=== PATIENT | female | born 1950 | race Caucasian/White ===

== ENCOUNTER 2023-01-04 00:25 | Emergency (ER) | payer MEDICARE, SELFPAY ==
[2023-01-04 00:32] VITALS: BP 167/83; PULSE 79; RESP 18; TEMP 35.7; O2SAT 95; BMI 25.0
[2023-01-04 01:27] VITALS: BP 149/81; PULSE 66
--- NOTE | 2023-01-04 01:28 | EKG12_ITS ---
Test Reason : DYSRHYTHMIA Blood Pressure : / mmHG Vent. Rate : 064 BPM Atrial Rate : 064 BPM P-R Int : 200 ms QRS Dur : 144 ms QT Int : 452 ms P-R-T Axes : 031 -01 002 degrees QTc Int : 466 ms Normal sinus rhythm Right bundle branch block Abnormal ECG Confirmed by JERALD CRAWFORD, DAYNA ([id number]), science editor MARI JESUS ([id number]) on 01/06/2023 11:29:56 A M Referred By: FLAKITA Confirmed By:GORDON MARQUES MD
[2023-01-04] MEDS: dilTIAZem CD 180 MG Capsule PO (01:37)
[2023-01-04 02:02] LABS: Absolute Neutrophil Count 5.8 X10^3/uL (2.0-7.7); Basophil# 0.08 X10^3/uL; Eosinophil# 0.06 X10^3/uL; Eosinophils% 0.7 % (0-5); Hematocrit 42.5 % (37-47); Hemoglobin 13.8 g/dL (12.0-15.0); Lymphocyte % 21.4 % (19-41); Mean Corp Hgb Conc 32.5 g/dL (32-36); Mean Corpuscular Hgb 29.6 pg (27.0-32.0); Mean Platelet Vol. 9.4 fl (6.2-12.0); Monocyte# 0.67 X10^3/uL; NRBC Flagged by Analyzer 0 % (0-5); Neutrophil # 5.76 X10^3/uL (2.7-7.7); Neutrophil % 68.5 % (47-70); Platelet Count 278 K/mm3 (150-450); RBC Distribution Width CV 12.8 % (11.6-14.6); RBC Distribution Width SD 42.1 fl (35.1-43.9); Red Blood Count 4.67 M/mm3 (4.2-5.4); White Blood Count 8.4 K/mm3 (4.4-11.0)
--- NOTE | 2023-01-04 02:15 | EDS_ITS ---
HPI History of Present Illness Chief Complaint: Hypertension Informant: patient Onset/Context/Timing Onset: Days (2) Context: Gradual Onset Timing: Intermittent Quality: Irregular Location: Chest Worsened by: Eating (sometimes) Relieved by: Nothing Narrative Narrative: Patient presents with palpitations and elevated blood pressure for the past 2 days. Patient states she has been out of her diltiazem for the past 2 days. Patient states she normally takes 180 mg daily. Patient states she feels some irregularity in her chest. Patient states it comes and goes. Patient states sometimes it is worse after eating. Patient denies any shortness of breath or cough. Patient denies any nausea or vomiting. Patient denies any fevers or chills. [facility] Medical History Cataract Hypertension Home Medications diltiazem HCl 180 mg capsule,24 hr,extended release 180 mg PO DAILY #30 caps 01/04/23 [Rx Last Taken Unknown] escitalopram oxalate 10 mg tablet 10 mg PO DAILY 01/04/23 [History Last Taken Unknown] lisinopril 20 mg tablet 20 mg PO DAILY 01/04/23 [History Last Taken Unknown] omeprazole 20 mg capsule,delayed release 20 mg PO DAILY 01/04/23 [History Last Taken Unknown] rosuvastatin 10 mg tablet 10 mg PO DAILY 01/04/23 [History Last Taken Unknown] Allergy/AdvReac Type Severity Reaction Status Date / Time doxycycline Allergy Mild Other Verified 01/04/23 00:28 alendronate sodium Allergy Other Verified 01/04/23 00:28 Surgical History H/O kidney removal Social History Smoking Status: Never smoker ROS ROS ED Constitutional Constitutional ED: Denies chills or fever(s) Eyes Eyes: Reports blurry vision; Denies diplopia ENT ENT ED: Reports rhinorrhea; Denies sore throat Cardiovascular Cardiovascular: Reports palpitations; Denies chest pain Respiratory/Chest Respiratory/Chest: Denies cough or dyspnea Gastrointestinal Gastrointestinal: Denies nausea or vomiting Genitourinary Genitourinary ED: Denies dysuria or hematuria Musculoskeletal Musculoskeletal: Denies back pain or neck pain Integumentary Denies abscess or rash Neurologic Neurologic: Reports headache(s); Denies weakness Allergic/Immunologic Allergic/Immunologic ED: Denies mouth swelling or urticaria EXAM Physical Exam Const Vital Signs: 01/04/23 00:32 01/04/23 00:35 01/04/23 01:27 Temperature 96.3 F L Temperature Source Temporal Pulse Rate 79 66 Respiratory Rate 18 Respiratory Effort Normal Respiratory Pattern Normal Blood Pressure 167/83 H 149/81 H Blood Pressure Mean 111 103 Pulse Ox 95 Oxygen Delivery Method Room Air Positive well nourished and well developed General Appearance ED: well developed HEENT Reports moist mucous membranes Neck supple and no JVD Resp normal respiratory effort and clear to auscultation bilaterally Cardio regular rate and regular rhythm GI normal to inspection, nondistended, normoactive bowel sounds and non-tender Palpation: soft Extremity normal to inspection General Extremety ED: Negative for edema or tenderness General Extremity: Negative for edema Neuro oriented x3, CN's II-XII intact bilaterally and no sensory deficits noted Sensorium / Orientation: alert Motor Exam: strength 5/5 throughout Psych mental status grossly normal Skin no rashes or lesions noted MDM MDM MDM Narrative Medical decision making narrative: Differential diagnosis includes medication noncompliance, anxiety, electrolyte abnormality, anemia, cardiac dysrhythmia, and cardiac ischemia. CBC will be obtained to assess for anemia and leukocytosis. Basic metabolic profile will be obtained to assess for electrolyte abnormality and renal function. High- sensitivity troponin will be obtained to assess for cardiac ischemia. EKG will be obtained to assess for cardiac dysrhythmia and cardiac ischemia. Lab Data Attestation: I reviewed the patient's lab results. Lab results narrative: CBC was reviewed and was within normal limits. Basic metabolic profile was reviewed. Creatinine was slightly elevated at 1.2. High-sensitivity troponin was reviewed and was normal at 21. Labs: Laboratory Results - last 24 hr 01/04/23 01/04/23 01:44 01:44 WBC 8.4 RBC 4.67 Hgb 13.8 Hct 42.5 MCV 91.0 MCH 29.6 MCHC 32.5 RDW Std Deviation 42.1 RDW Coeff of Марина 12.8 Plt Count 278 MPV 9.4 Immature Gran % (Auto) 0.400 Neut % (Auto) 68.5 Lymph % (Auto) 21.4 Smyth % (Auto) 8.0 Eos % (Auto) 0.7 Baso % (Auto) 1.0 Absolute Neuts (auto) 5.8 Absolute Lymphs (auto) 1.80 Nucleated RBC % 0 Sodium 138 Potassium 3.7 Chloride 104 Carbon Dioxide 26.0 Anion Gap 8 BUN 17 Creatinine 1.20 H Estim Creat Clear Calc 40.25 Est GFR (MDRD) Af Amer 57 L Est GFR (MDRD) Non-Af 47 L BUN/Creatinine Ratio 14.2 Glucose 115 H Calcium 8.9 Troponin I High Sens 21 EKG Initial EKG: Attestation: I personally reviewed and interpreted this EKG as follows: Interpretation: Sinus Rhythm (71), No Acute Injury Pattern and RBBB Comments: EKG was obtained. On my independent interpretation, it showed a normal sinus rhythm with a rate of 64. SD interval was borderline at 200 ms. QRS interval was 144 ms. QTc interval was 466 ms. [place] was normal. There are no acute ST or T wave changes. Prior EKG tracings: not available for review Prior: No Prior Treatment and Re-Evaluation :: Patient was given a dose of her diltiazem 180 mg of extended release here. Discharge Plan Triage Chief Complaint: Hypertension ED Provider: Dawood Clayton Dx/Rx/DC Orders Clinical Impression: Hypertension, Palpitations Instructions: ED Hypertension, Established Prescriptions: Continued diltiazem HCl 180 mg capsule,extended release 24 hr 180 mg PO DAILY Qty: 30 0RF No Action lisinopril 20 mg tablet 20 mg PO DAILY Label Comments: TAKE 1 TABLET BY MOUTH DAILY omeprazole 20 mg capsule,delayed release(DR/EC) 20 mg PO DAILY escitalopram oxalate 10 mg tablet 10 mg PO DAILY rosuvastatin 10 mg tablet 10 mg PO DAILY Label Comments: TAKE 1 TABLET BY MOUTH DAILY Primary Care Provider: Neelam Ledesma Referrals: Neelam Ledesma DO [Primary Care Provider] - 5-7 Days Disposition Disposition: Home, Self Care
[2023-01-04 02:21] LABS: Anion Gap 8 (5-15); BUN 17 mg/dL (7-18); BUN/Creat Ratio 14.2 RATIO (10-20); Calcium,Total 8.9 mg/dL (8.5-10.1); Chloride 104 mmol/L (98-107); EST Glomerular Filtration Rate 47 mL/min (>60); Est Glom Filt Rate - Afr Amer 57 mL/min (>60); Estimated Creatinine Clearance 40.25 ml/min; Glucose 115 mg/dL (74-106); Potassium 3.7 mmol/L (3.5-5.1); Sodium Level 138 mmol/L (136-145); Troponin-I HS 21 pg/mL (3.0-54.0)
[2023-01-04 03:19] VITALS: BP 147/74; PULSE 63; RESP 18; O2SAT 96
== END 2023-01-04 03:20 | disposition home or self-care (01) ==
PROVIDERS: Emergency Provider Emergency Medicine; PCP Family Medicine; Visit Provider Emergency Medicine
DX: I10 Essential (primary) hypertension (principal); R00.2 Palpitations; Z79.899 Other long term (current) drug therapy
CPT/HCPCS: 80048; 84484; 85025; 93005; 99285; A4216

== ENCOUNTER 2023-02-24 11:30 | Outpatient (RCR) | payer MEDICARE, SELFPAY ==
--- NOTE | 2023-02-03 09:23 | HP.PTEVAL ---
Patient's Visit Information CLINT GRAMAJO is a 72 year old F referred to Physical Therapy by Miguelina Vickers DO with a diagnosis of osteoporosis. Date of Evaluation: 02/03/23 Physical Therapist: Dawood Barrios DPT, OCS, CSCS - Visit Plan Frequency: 3x /Week Duration: 4 Weeks Plan: 3x/week for 3-4 weeks. Please ensure patient taking long walk 2+ miles 3x/week. progress core, postural and WB ex 3x/week (pt to decide if wants at home or in gym) with pics list in conjunciton with 3 shorter walks per week 1 mile or so. Please ensure tolerates this program and gets I and compliant and then can recheck with therapist. - Subjective Had osteoporosis for a while about 5 yrs. just started a new doctor and stopped meds due to side effects and needs exercises for OP, Takes calcium and vitamin D. Has some LBP intermittently but had scoliosis surgery 9 vertebrae fusion since teenager. Takes omepraxole and has acid reflux. Sleep is OK, great. Not employed. Spends day going for walk 3x/week 1.5 miles. Reads and knits. Basic at home are no problem. No balance problems, no AD needed. Has no steps at home. - Objective Patient ambulates I with good balance today and is up tall with decent posture. Incision in thoracic spine from old surgery. Limited ROM in thoracic spine from this surgery. LB is stiff in lumbar area. HS are mod tight at -15 90/90 test. hip aROM WFL and without pain. No tenderness in lumbar paraspinals or hip mm. knee adn ankle aROM WFL. strength in core 3- abs, 3 back extension, hip rotations 3+, hip ext and abd 3+ and hip flexion 3+. knee ext and flexion 4/5 and ankles 4/5. reflexes 2/3 patella and achilles. UE AROM WFL and without pain, weakness in core with resisted UE testing. sensation LE WNL to gross light touch. - Balance/Special Test Scores Functional Gait Assessment Score: 30 % Disability: 0 CATSIB Score (Max score 120 seconds): 120 Lower Extremity Functional Score: 74 - Goals Goal 1:: I appropriate HEP for long walk 2+ miles 3x/week, short walk 1 mile and core, hip WB strength ex 30 min 3x/week for overall health and management Goal Time Frame: 2-4 Weeks - Rehabilitation Potential Physical Therapy Diagnosis: osteoporosis and could benefit from weight bearing ex program for oong term health. Rehabilitation Potential: Good - Anticipated Interventions Patient/Client Instruction: Educate patient on: Condition, Plan of Care For the Purpose of:: To improve nutrient delivery to tissue, To improve safety, To foster healthy habits Therapeutic Exercise to Include: Strength training, Postural training, Flexibilty training, Dynamic Lumbar Stabilization For the Purpose of:: To increase ROM, To improve nutrient delivery to tissue, To increase oxygenation perfusion, To improve muscle performance and motor function, To improve self management, To improve ability to perform tasks related to life management Thank you for the opportunity to evaluate your patient. For Medicare and Medicare HMO plans, please review the plan of care and approve it. It will need to be FAXED BACK to us at [phone] for Medicare purposes. For Medicare only, by signing this I certify the plan of care. Please let me know if there are questions or concerns regarding this plan of care. Physician Signature: Date:
--- NOTE | 2023-02-24 12:11 | HP.PTDCSUM ---
Discharge Summary D/C summary: It has been my pleasure to treat CLINT GRAMAJO referred by Miguelina Vickers DO, with the diagnosis of osteoporosis for a total of 10 visit(s). Discharge Date: 02/24/23 Please see the following information for a summary of their discharge status. Subjective Subjective: Getting better everyday. feeling good. Doing exercises at home without problem. Activities normal at home. sleep well. To doctor in 6 months. Walking every day almost unless rain at least a mile or more. Overall Improvement % Improvement: 100 Objective Objective/Function: met goal and good swith current ex 3x/week at least and walking daily. No gait deviations steps reciprocal without rail. Goals Goal 1:: I appropriate HEP for long walk 2+ miles 3x/week, short walk 1 mile and core, hip WB strength ex 30 min 3x/week for overall health and management Goal Progress: Goal Met Plan Plan: d/c to HEP, maybe appropriate to send back in winter for gym ex if desired, not desired currently. D/C Information d/c sentence: If there are questions or concerns regarding this patient's physical therapy, please feel free to call me at [phone]. Thank you for the referral of this patient. Sincerely, Dawood Barrios, DPT, OCS, CSCS Balance/Gait/Functional tests Balance/Special Test Scores Functional Gait Assessment Score: 30 % Disability: 0 CATSIB Score (Max score 120 seconds): 120 Lower Extremity Functional Score: 74
== END 2023-02-24 14:20 | disposition home or self-care (01) ==
LOC: PT 11:30
PROVIDERS: PCP Family Medicine; Referring Provider Family Medicine; Visit Provider Family Medicine
DX: M85.80 Other specified disorders of bone density and structure, unspecified site (principal)
CPT/HCPCS: 97110; 97161; 97164

== ENCOUNTER → 2023-07-07 | Outpatient (CLI) | payer MEDICARE, SELFPAY ==
[2023-07-07 10:17] LABS: Absolute Lymphocyte Count 1.23 X10^3/uL (0.83-4.51); Absolute Neutrophil Count 4.1 X10^3/uL (2.0-7.7); Basophil# 0.08 X10^3/uL; Basophil% 1.4 % (0-1); Eosinophil# 0.09 X10^3/uL; Eosinophils% 1.5 % (0-5); Hematocrit 45.4 % (37-47); Lymphocyte # 1.23 X10^3/ul (0.83-4.51); Lymphocyte % 20.9 % (19-41); Mean Corpuscular Hgb 29.7 pg (27.0-32.0); Mean Corpuscular Volume 89.9 fL (81-99); Mean Platelet Vol. 9.1 fl (6.2-12.0); Monocyte% 6.8 % (0-10); NRBC Flagged by Analyzer 0 % (0-5); Neutrophil # 4.08 X10^3/uL (2.7-7.7); Neutrophil % 69.2 % (47-70); Platelet Count 310 K/mm3 (150-450); RBC Distribution Width CV 12.7 % (11.6-14.6); RBC Distribution Width SD 41.9 fl (35.1-43.9); Red Blood Count 5.05 M/mm3 (4.2-5.4); White Blood Count 5.9 K/mm3 (4.4-11.0)
[2023-07-07 10:39] LABS: ALB/GLOB Ratio 0.9 RATIO (0.9-2.4); AST(SGOT) 16 U/L (15-37); Alanine Aminotransfer ALT/SGPT 21 U/L (13-56); Albumin, Serum 3.7 g/dL (3.2-5.0); Alkaline Phosphatase 108 U/L (45-117); Anion Gap 4 (5-15); BUN 15 mg/dL (7-18); BUN/Creat Ratio 13.9 RATIO (10-20); Calcium,Total 9.2 mg/dL (8.5-10.1); Chloride 108 mmol/L (98-107); Cholesterol 165 mg/dL (200); Creatinine, Serum 1.08 mg/dL (0.55-1.02); EST Glomerular Filtration Rate 53 mL/min (>60); Est Glom Filt Rate - Afr Amer 64 mL/min (>60); Glucose 108 mg/dL (74-106); High Density Lipoprotein 49 mg/dL; Potassium 3.9 mmol/L (3.5-5.1); Protein, Total 7.7 g/dL (6.4-8.2); Sodium Level 140 mmol/L (136-145); Triglycerides 130 mg/dL; Very Low Density Lipoprotein 26 mg/dL (5-40)
[2023-07-07 10:48] LABS: Vitamin D,25 Hydroxy 57.2 ng/mL
== END | disposition home or self-care (01) ==
LOC: PAVLAB 10:02
PROVIDERS: PCP Family Medicine; Referring Provider Nurse Practitioner Family; Visit Provider Nurse Practitioner Family
DX: I10 Essential (primary) hypertension (principal); E78.5 Hyperlipidemia, unspecified; E55.9 Vitamin D deficiency, unspecified
CPT/HCPCS: 36415; 80053; 80061; 82306; 85025

== ENCOUNTER → 2023-07-15 | Outpatient (CLI) | payer MEDICARE, SELFPAY ==
--- NOTE | 2023-07-15 08:12 | BI_ITS ---
MAMMOGRAPHY - BILATERAL SCREENING REASON FOR EXAM: Female, 73 years old. Routine annual screening examination. PERTINENT HISTORY: Non-contributory. TECHNIQUE: Digital bilateral breast mendoza (3D mammographic acquisition) in the CC and MLO projections. 2-D mediolateral oblique (MLO) and craniocaudad (CC) views of both breasts were obtained. CAD: Full Field Digital Mammography with Computer Added Detection was performed. COMPARISON: Comparison is made with prior outside examination July 25, 2022. FINDINGS: Breast Composition: There are scattered areas of fibroglandular density. There are no dominant masses or suspicious calcifications. No other significant abnormalities are identified. There has been no significant change since the prior study. BI/SCRN MAMM (CAD)W/MENDOZA BILAT IMPRESSION: Stable bilateral screening mammogram. Yearly follow-up mammogram recommended. (A) ASSESSMENT CATEGORY: BIRADS Category 1: Negative. A letter regarding these results will be sent to the patient by the facility within 30 days. Approximately 10% of breast cancers are not detected by mammography. A normal mammogram should not delay biopsy of a clinically suspicious abnormality. [id number] Electronically Signed: Valente Bird MD at 12:41 EST ,
== END | disposition home or self-care (01) ==
LOC: OPBI 08:10
PROVIDERS: PCP Family Medicine; Referring Provider Nurse Practitioner Family; Visit Provider Nurse Practitioner Family
DX: Z12.31 Encounter for screening mammogram for malignant neoplasm of breast (principal)
CPT/HCPCS: 77063; 77067

== ENCOUNTER → 2023-08-28 | Outpatient (CLI) | payer MEDICARE, SELFPAY ==
--- NOTE | 2023-08-28 10:25 | BD_ITS ---
STUDY: DUAL ENERGY X-RAY ABSORPTIOMETRY / DXA REASON FOR EXAM: Female, 73 years old. [id number] TECHNIQUE: Bone Mineral Density (BMD) measurements of lumbar spine and bilateral hips were obtained. COMPARISON: None. FINDINGS: Lumbar Spine (L1-L4): g/cm2 (0.953) / T-score (-0.8) / Z-score (1.5) Findings are suggestive of normal bone density with a low fracture risk. Left Femur Total: g/cm2 (0.772) / T-score (-1.4) / Z-score (0.2) Left Femoral Neck: g/cm2 (0.592) / T-score (-2.3) / Z-score (-0.4) Right Femur Total: g/cm2 (0.701) / T-score (-2.0) / Z-score (-0.3) Right Femoral Neck: g/cm2 (0.616) / T-score (-2.1) / Z-score (-0.2) BD/Dexa Bone Density Study IMPRESSION: The patient is considered osteopenic as outlined below according to World Leo Organization (WHO) criteria with a high fracture risk. Reference Information: The T-score is the number of standard deviations above or below the standard which is normal for young adults at their peak bone mineral density. The World Health Organization (WHO) interprets the T-scores as follows: Above -1 Normal bone density Between -1 and -2.5 Osteopenia Equal to / or below -2.5 Osteoporosis As a practical clinical guideline, osteopenia may be graded as follows: Mild -1 through -1.5 Moderate -1.6 through -2.0 Severe -2.1 through -2.4 The Z-score is the number of standard deviations above or below age-matched controls. A Z-score of less than -1.5 would be considered abnormal. References: 1. NIH Osteoporosis and Related Bone Diseases www osteo.org 2. International Society for Clinical Densitometry www iscd.org 3. National Osteoporosis Foundation www nof.org Electronically Signed: Valente Bird MD at 15:05 EST ,
--- OUTSIDE RECORDS SUMMARY | 2023-08-28 10:51 | XMS RPT_ITS | CCD ---
Author Name Unknown Address [address] [place] [address] Organization [facility] Care Team Providers Care Casino Accountant Name Role Phone Shira Dorsey PA-C Unavailable [phone] Van Nostran, Neelam Unavailable Unavailable Van Nostran, Neelam E Unavailable UnavailMina Burnett Unavailable Unavailable Belem Singleton Unavailable Unavailable Van Nostran, Neelam Unavailable Unavailable Irina Donaldson Unavailable Unavailable Van Nostran, Neelam Meghan Unavailable Unavailable Unavailable Jagdeep, Ms. Irina Attending Unavailable Van Nostran, Neelam Schreiber Primary Care Unava ilable Jagdeep, Ms. Irina Attending Unavailable Van Nostran, Neelam Schreiber Primary Care Unava ilable Jagdeep, Ms. Irina Attending Unavailable Van Nostran, Neelam Schreiber Primary Care Unava ilable Van Nostran, Neelam Schreiber Attending Unava ilable Van Nostran, Neelam Schreiber Referring Unava ilable Van Nostran, Neelam Schreiber Primary Care Unava ilable Van Nostran, Neelam Schreiber Attending Unava ilable Van Nostran, Neelam Schreiber Referring Unava ilable Van Nostran, Neelam Schreiber Primary Care Unava ilable Van Nostran, Neelam Schreiber Attending Unava ilable Van Nostran, Neelam Schreiber Referring Unava ilable Van Nostran, Neelam Schreiber Primary Care Unava ilable Van Nostran, Neelam Schreiber Attending Unava ilable Van Nostran, Neelam Schreiber Referring Unava ilable Van Nostran, Neelam Candie Primary Care Unava ilable Jagdeep, Ms. Irina Attending Unavailable Van Nostran, Neelam Candie Primary Care Unava ilable Allergies Allergy Classification Reported Allergen(s) Allergy Type Date of Onset Reaction(s) Facility (1 source) acetaminophen Drug Allergy 8 Lightheaded [facility] Work Phone: (1 source) niacin Drug Allergy 8 Hives [facility] Work Phone: (1 source) BENZOIN TINCTURE drug allergy 8 Rash, Itching [facility] Work Phone: (8 sources) Doxycycline; Translations: [Doxycycline Monohydrate CAPS] Drug Allergy [facility] Work Phone: Medications Completed/Discontinued Medications Medication Drug Class(es) Dates Sig (Normalized) Sig (Original) alendronic acid 70 mg oral tablet (20 sources) Bisphosphonate Start: 10-26-2018 take 1 tablet by mouth every week at breakfast Alendronate Sodium 70 MG Oral Tablet TAKE 1 TABLET WEEKLY, 30-60 MINUTES PRIOR TO BREAKFAST ON AN EMPTY STOMACH. DO NOT LIE DOWN AFTER TAKING MEDICATION. Quantity: 12 Refills: 3 Ordered: 17-Jul-2022 Neelam Valle DO Start : 26-Oct-2018 Active amoxicillin 500 mg oral capsule (3 sources) Penicillin-class Antibacterial Start: 09-01-2022 take 1 capsule by mouth twice daily Amoxicillin 500 MG Oral Capsule TAKE 1 CAPSULE TWICE DAILY UNTIL GONE. Quantity: 14 Refills: 0 Ordered: 01-Sep-2022 Neelam Valle DO Start : 01-Sep-2022 Active aspirin 81 mg oral tablet (20 sources) Platelet Aggregation Inhibitor, Nonsteroidal Anti-inflammatory Drug Aspirin 81 MG TABS Quantity: 0 Refills: 0 Ordered: 18-Nov-2017 DO Active Problems Active Problems Problem Classification Problem Date Documented Da te Episodic/Chronic Abdominal hernia (20 sources) Hiatal hernia; Translations: [Diaphragmatic hernia without mention of obstruction or gangrene] Episodic Past or Other Problems Problem Classification Problem Date Documented Date Episodic/Chronic Other diseases of veins and lymphatics (1 source) Venous insufficiency (chronic) (peripheral); Translations: [Venous insufficiency (chronic) (peripheral)] Onset: 02-15-2022 Episodic Residual codes; unclassified (16 sources) Immunization due; Translations: [Immunization due] Unclassified (1 source) Problem Unclassified (20 sources) Patient encounter status; Translations: [Screening for cardiovascular condition] Unclassified (3 sources) Body mass index 20-24 - normal; Translations: [Body mass index (BMI) of 24.0 to 24.9 in adult] NEGATED: Highlighted row has not occurred!Residual codes; unclassified (20 sources) Disease Episodic Results Test Name Value Interpretation Reference Range Facil ity Vital Signs Date Time Vital Sign Value Performing Clinician Facility 08-29-2022 07:52-0500 Body mass index (BMI) [Ratio] 25.09 kg/m2 Neelam Christianson John Nostran Work Phone: [facility] Work Phone: 08-29-2022 07:52-0500 Body surface area Derived from formula 1.8 m2 Neelam Christianson Van N[place] Work Phone: [facility] Work Phone: 08-29-2022 07:52-0500 Body temperature 98 [degF] Neelam Christianson [employer] Nostran Work Phone: [facility] Work Phone: 08-29-2022 07:52-0500 Body weight 70.51 kg Neelam Meghan Van Nostran Work Phone: [facility] Work Phone: 08-29-2022 07:52-0500 Diastolic blood pressure 65 mm[Hg] Neelam Christianson Van Nostran Work Phone: [facility] Work Phone: 08-29-2022 07:52-0500 Heart rate 66 /min Neelam Christianson Van Nostran Work Phone: [facility] Work Phone: 08-29-2022 07:52-0500 Respiratory rate 14 /min Neelam Christianson Van Nostran Work Phone: [facility] Work Phone: 08-29-2022 07:52-0500 SaO2% (BldA) [Mass fraction] 95 % Neelam Christianson Van Nostran Work Phone: [facility] Work Phone: 08-29-2022 07:52-0500 Systolic blood pressure 123 mm[Hg] Neelam Christianson Van Nostran Work Phone: [facility] Work Phone: 08-15-2022 13:22-0500 Diastolic blood pressure 88 mm[Hg] Neelam Christianson Van Nostran Work Phone: IV-Tbqtnkgwan-Fwtwv a [address] [place] Work Phone: 08-15-2022 13:22-0500 Systolic blood pressure 154 mm[Hg] Neelam Christianson Van Nostran Work Phone: RZ-Zjnosjiihs-Dghlo a [address] [place] Work Phone: 08-15-2022 13:08-0500 Body height 167.64 cm Neelam Christianson Van Nostran Work Phone: VD-Ceaojwlgbo-Jayfc a [address] [place] Work Phone: 08-15-2022 13:08-0500 Body mass index (BMI) [Ratio] 25.18 kg/m2 Neelam Christianson Van Nostran Work Phone: WZ-Koxfaqtlql-Nrsib a [address] [place] Work Phone: 08-15-2022 13:08-0500 Body surface area Derived from formula 1.8 m2 Neelam Christianson Van Nostran Work Phone: EF-Deanvtmjkg-Cqqnn a [address] [place] Work Phone: 08-15-2022 13:08-0500 Body weight 70.76 kg Neelam Christianson Van Nostran Work Phone: TK-Hiyhnwgege-Xtlyo a [address] [place] Work Phone: 08-15-2022 13:08-0500 Diastolic blood pressure 79 mm[Hg] Neelam Christianson Van Nostran Work Phone: SB-Zneekwoqzq-Myxee a [address] [place] Work Phone: 08-15-2022 13:08-0500 Heart rate 63 /min Neelam Christianson Van Nostran Work Phone: PU-Qvldnamvks-Arvsu a [address] [place] Work Phone: 08-15-2022 13:08-0500 SaO2% (BldA) [Mass fraction] 96 % Neelam Christianson Van Nostran Work Phone: PV-Viagybgtco-Qlwlx a [address] [place] Work Phone: 08-15-2022 13:08-0500 Systolic blood pressure 162 mm[Hg] Neelam Christianson Van Nostran Work Phone: FA-Ftnbajwyrh-Fnmwb a [address] [place] Work Phone: 07-17-2022 13:32-0500 Body mass index (BMI) [Ratio] 25.58 kg/m2 Neelam Christianson Van Nostran Work Phone: [facility] Work Phone: 07-17-2022 13:32-0500 Body surface area Derived from formula 1.81 m2 Neelam Christianson Van Nostran Work Phone: [facility] Work Phone: 07-17-2022 13:32-0500 Body temperature 98.4 [degF] Neelam Christianson Van Nostran Work Phone: [facility] Work Phone: 07-17-2022 13:32-0500 Body weight 71.9 kg Neelam Chirstianson Van Nostran Work Phone: [facility] Work Phone: 07-17-2022 13:32-0500 Diastolic blood pressure 70 mm[Hg] Neelam Christianson Van Nostran Work Phone: [facility] Work Phone: 07-17-2022 13:32-0500 Heart rate 65 /min Neelam Christianson Van Nostran Work Phone: [facility] Work Phone: 07-17-2022 13:32-0500 Respiratory rate 14 /min Neelam Christianson Van Nostran Work Phone: [facility] Work Phone: 07-17-2022 13:32-0500 SaO2% (BldA) [Mass fraction] 97 % Neelam Christianson Van Nostran Work Phone: [facility] Work Phone: 07-17-2022 13:32-0500 Systolic blood pressure 149 mm[Hg] Neelam Christianson Van Nostran Work Phone: [facility] Work Phone: 07-17-2022 13:32-0500 0 1 Neelam Christianson Van Nostran Work Phone: [facility] Work Phone: Encounters Encounter Date Encounter Type Care Provider Facility Start: 01-06-2023 AUDIT Neelam E Van N ostran Work Phone: LL-Mrexpteqhu[facility]Qbwpe Work Phone: Start: 09-03-2022 Chart Update Neelam Meghan Van N ostran Work Phone: [facility] Work Phone: Start: 09-02-2022 Chart Update Neelam Christianson Van N ostr[place] Work Phone: [facility] Work Phone: Start: 09-02-2022 ambulatory Neelam Rawlstran Facility:[id number] Start: 08-29-2022 Office outpatient vi sit 25 minutes Neelam Meghan Lopez Nostran Work Phone: [facility] Work Phone: Start: 08-29-2022 ambulatory Neelam Candie John Waldron Facility:[id number] Start: 08-15-2022 FUV, Provider: Irina Donaldson, Status: Pen, Time: 1:00 PM Neelam Christianson Van Nostran Work Phone: [facility] Work Phone: Start: 08-15-2022 Office outpatient vi sit 15 minutes Neelam Christianson Van Nostran Work Phone: IX-Qhmzkfqfzp-Uqjnoj [address] [place] Work Phone: Start: 08-15-2022 ambulatory Ms. Irina Gannon Faci lity:[id number] Start: 08-13-2022 AUDIT Neelam Meghan Van N ostran Work Phone: [facility] Work Phone: Start: 07-29-2022 Chart Update Neelam Meghan Van N ostran Work Phone: [facility] Work Phone: Start: 07-25-2022 ambulatory Neelam Schreiber Van Nostran Facility:[id number] Start: 07-17-2022 Patient encounter procedure Neelam Lopez Nostran Work Phone: [facility] Work Phone: Start: 07-17-2022 ambulatory Neelam Schreiber John Nostran Facility:[id number] Start: 04-19-2022 AUDIT Neelam Christianson Van N ostran Work Phone: [facility] Work Phone: Start: 02-21-2022 Rx Renewal Neelam Meghan Van N ostran Work Phone: MO-Svwefcuypv-Vvrtu Work Phone: Start: 02-15-2022 ambulatory Ms. Irina Gannon Faci lity:[id number] Start: 02-15-2022 Office outpatient vi sit 15 minutes Neelam Christianson Van Nostran Work Phone: WF-Crpxhfyruz-Befmpq [address] [place] Work Phone: Start: 02-15-2022 Patient encounter procedure Neelam Christianson Van Nostran Work Phone: PU-Zzayednbgx-Tmtztf [address] [place] Work Phone: Start: 01-09-2022 AUDIT Neelam Christianson Van N ostran Work Phone: [facility] Work Phone: Start: 12-31-2021 Chart Update Neelam Lopez N ostran Work Phone: QN-Jgisckukup-Xqootj [address] [place] Work Phone: Start: 12-25-2021 ECHO, Provider: MG KAMILLA CARD, Status: Pen, Time: 9:00 AM Neelam Lopez Nostran Work Phone: [facility] Work Phone: Start: 12-25-2021 ambulatory Ms. Irina Jain lity:[id number] Start: 12-23-2021 Rx Renewal Neelam Christianson Van N ostran Work Phone: [facility] Work Phone: Start: 11-28-2021 Rx Renewal Neelam Christianson Van N ostran Work Phone: [facility] Work Phone: Start: 10-26-2021 Office outpatient vi sit 15 minutes Neelam Lopez Nostran Work Phone: UA-Qhysdmycyd-Kioqoz [address] [place] Work Phone: Start: 10-26-2021 ambulatory Ms. Irina Jain lity:[id number] Start: 09-25-2021 AUDIT Neelam Crhistianson Van N ostran Work Phone: [facility] Work Phone: Start: 07-23-2021 Chart Update Neelam Lopez N ostran Work Phone: [facility] Work Phone: Start: 07-13-2021 Chart Update Neelam Christianson Van [place] o[place] Work Phone: [facility] Work Phone: Start: 07-11-2021 Patient encounter procedure Neelam Lopez Nostran Work Phone: [facility] Work Phone: Start: 06-11-2021 AUDIT Neelam Christianson Van [place] ostr[place] Work Phone: [facility] Work Phone: Start: 03-28-2021 AUDIT Neelam Christianson John N ostran Work Phone: [facility] Work Phone: Start: 01-22-2021 Chart Update Neelam Christianson John N ostran Work Phone: [facility] Work Phone: Start: 10-19-2020 Patient encounter procedure Neelam Van Nostran [facility] Work Phone: Start: 10-17-2020 Patient encounter procedure Neelam John Nostran UL-Ecdjrdvevd-Dvaybe [address] [place] Work Phone: Start: 08-03-2020 Patient encounter procedure Neelam John Nostran FN-Iilyxhwvqk-Vidvwf [address] [place] Work Phone: Start: 07-05-2020 Patient encounter procedure Neelam Van Nostran CV-Izghiuowcz-Gduqck [address] [place] Work Phone: Start: 04-18-2020 Patient encounter procedure Neelam Van Nostran [facility] Work Phone: Start: 01-19-2020 Patient encounter procedure Neelam Van Nostran [facility] Work Phone: Start: 01-13-2020 Patient encounter procedure Neelam Van Nostran [facility] Work Phone: Start: 01-11-2020 Patient encounter procedure Neelam Van Nostran [facility] Work Phone: Start: 01-05-2020 Patient encounter procedure Neelam Van Nostran [facility] Work Phone: Start: 12-30-2019 Patient encounter procedure Belem Lizarraga [address] Work Phone: Start: 10-13-2019 Patient encounter procedure Neelam Van Nostran [facility] Work Phone: Start: 07-08-2019 Patient encounter procedure Neelam Van Nostran UB-Zmprnbomco-Ejirin [address] [place] Work Phone: Start: 06-16-2019 Patient encounter procedure Neelam John Nostran [facility] Work Phone: Start: 06-01-2019 Patient encounter procedure Neelam John Nostran NB-Mborgquguz-Tobihk [address] [place] Work Phone: Start: 04-21-2019 Patient encounter procedure Neelam John Nostran [facility] Work Phone: Start: 11-10-2018 Patient encounter procedure Neelam John Nostran [facility] Work Phone: Start: 10-22-2018 Patient encounter procedure Neelam John Nostran [facility] Work Phone: Start: 10-13-2018 Patient encounter procedure Neelam John Nostran [facility] Work Phone: Start: 09-08-2018 Patient encounter procedure Neelam Van Nostran [facility] Work Phone: Start: 07-30-2018 Patient encounter procedure Neelam John Nostran [facility] Work Phone: Start: 07-20-2018 Patient encounter procedure Neelam John Nostran [facility] Work Phone: Start: 06-08-2018 Patient encounter procedure Neelam Van Nostran [facility] Work Phone: Start: 06-02-2018 End: 06-02-2018 Patient encounter procedure Shira Dorsey PA-C Work Phone: [facility] Work Phone: Start: 03-03-2018 Patient encounter procedure Neelam Lopez Nostran [facility] Work Phone: Start: 11-18-2017 Patient encounter procedure Neelam Lopez Nostran [facility] Work Phone: Patient encounter procedure Neelam Lopez Nostran Work Phone: [facility] Work Phone: Procedures Date Procedure Procedure Detail Performing Clinician Start: 12-25-2021 Echocardiography Neelam Christianson John Waldron Work Phone: Start: 10-17-2020 Basic metabolic 1998 panel - Serum or Plasma Neelam Valle Start: 10-17-2020 Lipid panel Neelam Valle Start: 07-05-2020 Hemoglobin glycosylated a1c Neelam Lopez Lynne cooleytanika Start: 07-05-2020 Ultrasound Kidney Unilateral Neelam Valle Start: 06-16-2019 Lipid panel Neelam Valle Start: 04-21-2019 CT Cardiac Scoring Neelam Valle Start: 04-21-2019 MG Breast screening Neelam Rawlstammy Start: 06-02-2018 End: 06-02-2018 Blood pressure within normal parameters - no follow-up required Shira Divas [employer] Work Phone: Start: 06-02-2018 End: 06-02-2018 BMI documented within normal parameters - no follow-up plan is required Shira Divas [employer] Work Phone: Start: 06-02-2018 End: 06-02-2018 Current medications documented [employer] PA-C Work Phone: Start: 06-02-2018 End: 06-02-2018 Pain assessment documented as positive - follow-up documented Shira [employer] PA-C Work Phone: Start: 06-02-2018 End: 06-02-2018 Tobacco non-user Shira [employer] PA-[employer] Work Phone: Donor nephrectomy Neelam John Waldron Fusion of thoracic spine Godwin Christianson John Waldron Work Phone: H/O: kidney donation History of kidney donation Neelam Christianson John Waldron Work Phone: History of Oral Surg janette Tooth Extraction [place] [facility] Neelam John Waldron Lumbar spinal fusion Neelam Christianson John Waldron Work Phone: Plan of Treatment Date Care Activity Detail Author Start: 02-20-2023 FUV, Provider: Irina Donaldson, Status: Pen, Time: 9:30 AM FUV, Provider: Irina Donaldson, Status: Pen, Time: 9:30 AM IG-Tesolnuhbu-Xxmjja [address] [place] Work Phone: Start: 01-15-2023 FUV, Provider: Neelam Valle, Status: Pen, Time: 2:00 PM FUV, Provider: Neelam Valle, Status: Pen, Time: 2:00 PM [facility] Work Phone: Start: 08-15-2022 FUV, Provider: Irina Donaldson, Status: Pen, Time: 1:00 PM FUV, Provider: Irina Donaldson, Status: Pen, Time: 1:[address]-Ldodxkrtgl-Dadjer [address] [place] Work Phone: Start: 07-17-2022 Patient encounter procedure MCRANNUAL, Provider: Neelam Valle, Status: Pen, Time: 1:30 PM UD-Azjmwqvhbr-Cfepeu [address] [place] Work Phone: Start: 01-23-2022 FUV, Provider: Irina Donaldson, Status: Pen, Time: 10:30 AM FUV, Provider: Irina Donaldson, Status: Pen, Time: 10:30 AM HH-Lhkzjogxai-Bqaqcw [address] [place] Work Phone: Start: 12-25-2021 ECHO, Provider: MEDI NA HHVI,MG CARD, Status: Pen, Time: 9:00 AM ECHO, Provider: PIZARRO HHVI,MG CARD, Status: Pen, Time: 9:00 AM WP-Hiktogsydw-Mcotxy [address] [place] Work Phone: Start: 10-26-2021 FUV, Provider: Irina Donaldson, Status: Pen, Time: 10:00 AM FUV, Provider: Irina Donaldson, Status: Pen, Time: 10:00 AM [facility] Work Phone: Start: 10-17-2021 FUV, Provider: Neelam Valle, Status: Pen, Time: 11:10 AM FUV, Provider: Neelam Valle, Status: Pen, Time: 11:10 AM [facility] Work Phone: Start: 07-11-2021 Patient encounter procedure MCRANNUAL, Provider: Neelam Valle, Status: Pen, Time: 10:50 AM [facility] Work Phone: Start: 04-17-2021 FUV, Provider: Irina Donaldson, Status: Pen, Time: 10:00 AM FUV, Provider: Irina Donaldson, Status: Pen, Time: 10:00 AM [facility] Work Phone: Start: 12-23-2020 Basic metabolic 1998 panel - Serum or Plasma Basic Metabolic Panel RD-Wgxlcuwwvo-Uahfmv [address] [place] Work Phone: Start: 12-23-2020 Lipid panel Lipid Panel MP-Cardiol ogy-Pizarro [address] [place] Work Phone: Start: 07-11-2020 Ultrasound Kid jil Unilateral [facility] Work Phone: Start: 05-28-2019 CT Cardiac Scoring [facility] Work Phone: Start: 06-02-2018 End: 06-02-2018 Appointment [facility] [place] [facility] Work Phone: Lipid panel Lipid Panel -[facility] Work Phone: Immunizations Immunization Date Immunization Notes Care Provider Darryn wilburn 05-24-2022 Fluad Quadrivalent 0 .5 ML Intramuscular Prefilled Syringe [facility]elam Valle [facility] Work Phone: Payers Date Payer Category Payer Unknown [id number] 1950 Unknown [id number] 1950 Unknown [id number] 2. [id number] 1950 Unknown [id number] 2. [id number] 1950 Unknown [id number] 2.16. [id number] 1950 Unknown [id number] 2.16. [id number] 1950 Unknown [id number] 2.16. [id number] 1950 Unknown [id number] 2.16. [id number] Private Health Insurance [id number] Unknown Unknown [id number] Social History Date Type Detail Facility Start: 06-02-2018 End: 06-02-2018 Assertion Unknown if ever smoked [facility] Work Phone: Retired Retired [facility] Work Phone: NEGATED: Highlighted row - - [facility] Work Phone: Functional Status Date Assessment Result Facility 07-11-2021 PHQ-9 Adult Depressi on Score PHQ-9 Adult Depression Score 0 [facility] Work Phone: Mental Status Date Assessment Result Facility NEGATED: Highlighted row Cognitive function [Interpretation] Cognitive status health issues are not documented Disease [facility] Work Phone: History of Present illness Narrative 08-15-2022 Note Date & Type Note Facility 08-15-2022 History of Present illness Narrative 08/15/22: Clint is a 72-year-old female with a h/o HFpEF, HTN, HLD, osteoporosis, depression, and grade I diastolic dysfunction. Today, Clint continues to complain of discomfort and swellling to the left leg due to her varicose veins. She continues to wear a compression stocking and reports being able to feel the vein from the top of her leg down to the ankle. She denies any associated pelvic fullness. Clint also complains of fluttering in her chest which tends to worsen after eating. Her last heart monitor was placed in 2018 which revealed SVT. Clint denies her fluttering affecting her quality of life or interference in ADLs. BP in the office is 162/79; patient reports at home it runs in the 120s/70s.COVID in May; FLu in June; palpitations, same left leg edema02/15/2022: Mrs Gramajo is a 71 year old female with HFpEF, hypertension, hyperlipidemia, osteoporosis, depression, and diastolic dysfunction, here for a follow up of her hypertension, varicose veins with venous insufficiency. She denies any complaints of chest pain, shortness of breath, dizziness or syncope She does have varicose veins and venous insufficiency with episodes of mild lower extremity edema.10/26/21: Mrs Gramajo is a 71 year old female with HFpEF, hypertension, hyperlipidemia, osteoporosis, depression, and diastolic dysfunction, here for a follow up of her hypertension, varicose veins with venous insufficiency. Her weight in March was 152lbs, today her weight is 150. BP 158/78, HR 75. Her BP at home averages around 130/80. She denies any complaints of chest pain, shortness of breath, palpitations, dizziness or syncope. She did have one episode of dizziness after consuming Gatorade after the holidays, but no further issues since then. She does have chronic left leg edema.04/20/21: Mrs Gramajo is here for a follow up of her hypertension. Her BP today is 145/88. She denies any complaints of chest pain or shortness of breath, but does complain of palpitations and mild left ankle edema (that is chronic). We discussed the most recent lab results. Her weight is up 4 lbs since her last visit.10/17/2020: Mrs Gramajo is here for a follow up of her hypertension and to review her renal function (S/P kidney donation). She is doing very well over all. She denies any chest pain, shortness of breath, palpitations, dizziness, headaches or syncope.04/18/2020: Mrs Gramajo is here for a follow up of her hypertension and to review her renal function. 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 She is doing well over all. She reports good BP and HR control with home readings. She denies any chest pain, shortness of breath or palpations.Mrs Gramajo is here for a follow up of her SVT, now bradycardia and hypertension. The patient states much improvement in her over all symptoms since her diltiazem was reduced and she was started on lisinopril for her hypertension, however the patient reports she has been monitoring her BP at home and her systolic BP is anywhere from 105-120 , so she is only taking a half a tab of her lisinopril due to dizziness and nausea when she takes a full dose. She is walking 3 miles a day and no longer complains of lower extremity edema. She does wear compression stockings daily. EO-Mbnfzncrpw-Licfsm [address] [place] Work Phone: History of Present illness Narrative 02-15-2022 Note Date & Type Note Facility 02-15-2022 History of Present illness Narrative 02/15/2022: Mrs Gramajo is a 71 year old female with HFpEF, hypertension, hyperlipidemia, osteoporosis, depression, and diastolic dysfunction, here for a follow up of her hypertension, varicose veins with venous insufficiency. She denies any complaints of chest pain, shortness of breath, dizziness or syncope She does have varicose veins and venous insufficiency with episodes of mild lower extremity edema.10/26/21: Mrs Gramajo is a 71 year old female with HFpEF, hypertension, hyperlipidemia, osteoporosis, depression, and diastolic dysfunction, here for a follow up of her hypertension, varicose veins with venous insufficiency. Her weight in March was 152lbs, today her weight is 150. BP 158/78, HR 75. Her BP at home averages around 130/80. She denies any complaints of chest pain, shortness of breath, palpitations, dizziness or syncope. She did have one episode of dizziness after consuming Gatorade after the holidays, but no further issues since then. She does have chronic left leg edema.04/20/21: Mrs Gramajo is here for a follow up of her hypertension. Her BP today is 145/88. She denies any complaints of chest pain or shortness of breath, but does complain of palpitations and mild left ankle edema (that is chronic). We discussed the most recent lab results. Her weight is up 4 lbs since her last visit.10/17/2020: Mrs Gramajo is here for a follow up of her hypertension and to review her renal function (S/P kidney donation). She is doing very well over all. She denies any chest pain, shortness of breath, palpitations, dizziness, headaches or syncope.04/18/2020: Mrs Gramajo is here for a follow up of her hypertension and to review her renal function. 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 She is doing well over all. She reports good BP and HR control with home readings. She denies any chest pain, shortness of breath or palpations.Mrs Gramajo is here for a follow up of her SVT, now bradycardia and hypertension. The patient states much improvement in her over all symptoms since her diltiazem was reduced and she was started on lisinopril for her hypertension, however the patient reports she has been monitoring her BP at home and her systolic BP is anywhere from 105-120 , so she is only taking a half a tab of her lisinopril due to dizziness and nausea when she takes a full dose. She is walking 3 miles a day and no longer complains of lower extremity edema. She does wear compression stockings daily. [id number] [place] Work Phone: History of Present illness Narrative 10-26-2021 Note Date & Type Note Facility 10-26-2021 History of Present illness Narrative 10/26/21: Mrs Gramajo is a 71 year old female with HFpEF, hypertension, hyperlipidemia, osteoporosis, depression, and diastolic dysfunction, here for a follow up of her hypertension, varicose veins with venous insufficiency. Her weight in March was 152lbs, today her weight is 150. BP 158/78, HR 75. Her BP at home averages around 130/80. She denies any complaints of chest pain, shortness of breath, palpitations, dizziness or syncope. She did have one episode of dizziness after consuming Gatorade after the holidays, but no further issues since then. She does have chronic left leg edema.04/20/21: Mrs Gramajo is here for a follow up of her hypertension. Her BP today is 145/88. She denies any complaints of chest pain or shortness of breath, but does complain of palpitations and mild left ankle edema (that is chronic). We discussed the most recent lab results. Her weight is up 4 lbs since her last visit.10/17/2020: Mrs Gramajo is here for a follow up of her hypertension and to review her renal function (S/P kidney donation). She is doing very well over all. She denies any chest pain, shortness of breath, palpitations, dizziness, headaches or syncope.04/18/2020: Mrs Gramajo is here for a follow up of her hypertension and to review her renal function. 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 She is doing well over all. She reports good BP and HR control with home readings. She denies any chest pain, shortness of breath or palpations.Mrs Gramajo is here for a follow up of her SVT, now bradycardia and hypertension. The patient states much improvement in her over all symptoms since her diltiazem was reduced and she was started on lisinopril for her hypertension, however the patient reports she has been monitoring her BP at home and her systolic BP is anywhere from 105-120 , so she is only taking a half a tab of her lisinopril due to dizziness and nausea when she takes a full dose. She is walking 3 miles a day and no longer complains of lower extremity edema. She does wear compression stockings daily. [id number] [address] [place] Work Phone: History of Present illness Narrative 10-26-2021 Note Date & Type Note Facility 10-26-2021 History of Present illness Narrative 10/26/21: Mrs Gramajo is a 71 year old female with HFpEF, hypertension, hyperlipidemia, osteoporosis, depression, and diastolic dysfunction, here for a follow up of her hypertension, varicose veins with venous insufficiency. Her weight in March was 152lbs, today her weight is 150. BP 158/78, HR 75. Her BP at home averages around 130/80. She denies any complaints of chest pain, shortness of breath, palpitations, dizziness or syncope. She did have one episode of dizziness after consuming Gatorade after the holidays, but no further issues since then. She does have chronic left leg edema.04/20/21: Mrs Gramajo is here for a follow up of her hypertension. Her BP today is 145/88. She denies any complaints of chest pain or shortness of breath, but does complain of palpitations and mild left ankle edema (that is chronic). We discussed the most recent lab results. Her weight is up 4 lbs since her last visit.10/17/2020: Mrs Gramajo is here for a follow up of her hypertension and to review her renal function (S/P kidney donation). She is doing very well over all. She denies any chest pain, shortness of breath, palpitations, dizziness, headaches or syncope.04/18/2020: Mrs Gramajo is here for a follow up of her hypertension and to review her renal function. 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 She is doing well over all. She reports good BP and HR control with home readings. She denies any chest pain, shortness of breath or palpations.Mrs Gramajo is here for a follow up of her SVT, now bradycardia and hypertension. The patient states much improvement in her over all symptoms since her diltiazem was reduced and she was started on lisinopril for her hypertension, however the patient reports she has been monitoring her BP at home and her systolic BP is anywhere from 105-120 , so she is only taking a half a tab of her lisinopril due to dizziness and nausea when she takes a full dose. She is walking 3 miles a day and no longer complains of lower extremity edema. She does wear compression stockings daily. [facility] Work Phone: History of Present illness Narrative 08-25-2021 Note Date & Type Note Facility 08-25-2021 History of Present illness Narrative Health maintenance:TDAP-- none foundCOVID-- 08/2021Influenza-- hingrix-- none foundPneumonia series-- completedMammo-- AP-- none found - graduatedEGD-- 11/2018 (hiatal hernia + Schatzki's ring, no pathology done)Cscope(45-75)-- 10/2011 (diverticulosis, normal mucosa, no polyps, good prep) (due 10/2021)Last Dexa (65+)-- 12/2020 (osteopenia 09/27, improved from osteoporosis 10/2018) (DUE 12/2022).Anxiety/Depression-- HQ-9: 0GAD-7: 0Hepatitis C Screen-- none foundPre-DM-- HgbA1c: 5.9 in 07/2022Lipid Panel-- ratio: 4.2 in 07/2022 (LDL 99, TRIG 154)CT cardiac score--29.4 (low) 05/2019 (focal regions of calcification in the aorta)ECHO-- 08/2018 (LVEF 55-60 %, impaired relaxation, mildly elevated RSVP)Patient presents today for evaluation of rib pain. CLINT is here for having painonset:1 yearlocation:ribcagePain Scale 1-10: 4Describe your pain: ( Aching, dull, burning, stabbing)dullconstant or intermitted intermittentmade worse by:coffeemade better by: asprintreatment:asprinpain near kidneyonly has one kidneydonated left in 85 only has right kidney _CHRONIC CONDITIONS: TO BE REVIEWED AT NEXT ROUTINE OV-Mood, taking Lexapro 10 mg daily for mood.-Osteoporosis, presently on Alendronate which was started DEXA shows osteopenia 09/27, significantly improved from prior DEXA in 10/2018 (osteoporosis).-Hyperglycemia, pre-diabetic range, lifestyle managed.12/2020 Hgb A1c 6.1-Varicose veins and some edema, previously evaluated by Dr. Wang (vascular)They felt the leg pain was likely neurogenic.No venous abnormality seen on duplex done 12/17/2020.Advised to wear compression stockings and elevate..-History of arrhythmia, HFpEF, and HTN also followed by cardiology.Taking diltiazem 120 mg daily for arrhythmiaTaking Lisinopril 20 mg daily for blood pressure.-HLD/CAD, taking Rosuvastatin 10 mg and Aspirin 81 mg daily.05/2019 CACS was 29.4 (focal regions of calcification noted in aorta + marked scoliosis)12/2021 lipid panel favorable with ratio 3.012 lipid panel with TC/HDL ratio 4.2 (LDL 99, TRIG 154)-Decreased kidney function s/p left nephrectomy for donation, GFR ranges from 51 to normal.07/12/2020 US kidney: Unremarkable ultrasound of the right kidney. The left kidney is surgically absent.12/2021 GFR 69 (normal)07/2022 GFR 56 and creatinine 1.06-GERD + hiatal hernia (EGD 11/2018), taking omeprazole 20 mg daily. [facility] Work Phone: History of Present illness Narrative Note Date & Type Note Facility History of Present illness Narrative The patient is being seen for the subsequent annual wellness visit.Past Medical, Surgical and Family History: reviewed and updated in chart.Medications and Supplements: Medications and supplements, including calcium and vitamins reviewed and updated in chart.No, the patient is not using opioids.Patient Self Assessment of Health Status: good.Tobacco use: Non-UserAlcohol use: Non-UserIllicit drug use: Non-UserCurrent diet: well balanced diet, does consume adequate fluids and does not consume caffeine.Exercise Frequency: regularly.Depression/Suicide Screening: Patient has a current diagnosis of depression .During the past 2 weeks, the patient has not felt down, depressed or hopeless.During the past 2 weeks, the patient has not felt little interest or pleasure in doing things.Hearing Impairment: none.Cognitive Impairment: No cognitive impairment observed.Bathing: performs independently.Dressing: performs independently.Walking: performs independently.Managing Finances: performs independently.Shopping: performs independently.Managing Medications: performs independently.Housework / Basic Home Maintenance: performs independently.Falls Risk Screening:. CLINT has not fallen in the last 6 months.Home safety risk factors: none.Health maintenance:TDAP-- none foundCOVID-- completed 10/2020 did not get booster yetInfluenza-- OctShingrix-- none foundPneumonia series-- completedMammo-- 06/2020PAP-- none found - graduatedEGD-- 11/2018 (hiatal hernia + Schatzki's ring, no pathology done)Cscope(45-75)-- 10/2011 (diverticulosis, normal mucosa, no polyps, good prep) (due 10/2021)Last Dexa (65+)-- 12/2020 (osteopenia 2/3, improved from osteoporosis 10/2018) (DUE 12/2022).Anxiety/Depression-- HQ-9: 0GAD-7: 0Hepatitis C Screen-- none foundPre-DM-- HgbA1c: 6.1 in ipid Panel-- ratio: 3.3 in T cardiac score--29.4 (low) 05/2019 (focal regions of calcification in the aorta + marked scoliosis (rightward deviation) of the thoracic spine).ECHO-- 08/2018 HFpEF 55-60 %. Mild TR.*Due for: TDAP,, FLU, SHINGRIX, MAMMO, HEP C SCREENPatient presents today for recheck of mood, pre-DM, GERD + MWV. ABN obtained and brochure given to patientUTD on Dexa scsanChol checked in December 2020 by cytology technologist ratio 3.3flu shot done in scalesNo issues with GERD, taking meds regularlyLexapro seems to be working wellNo refills needed at this time;rcvd flu shot in may Patient is presently on Lexapro 10 mg daily for mood.PHQ-9 and CARRIE-7 scales were reviewed with patient. See scanned document for quantification of scales.Patient with history of osteoporosis, presently on Alendronate which was started DEXA shows osteopenia 2/3 and significant improved from prior DEXA in 10/2018 which showed osteoporosis.Hyperglycemia, pre-diabetic range, lifestyle managed.12/2020 Hgb A1c 6.1Patient with known varicose veins and some edema, referred to vascular at previous OV (06/2020). Evaluated by Dr. Wang, most recent follow-up from 10/19/2020 noted that leg pain likely neurogenic. No venous abnormality seen on duplex done 12/17. Advised to wear compression stockings and elevate. F/U prn.History of arrhythmia, HFpEF, CAD, HLD, and HTN also followed by cardiology.03/2021 CARDIO F/U: Increase Lisinopril to 10 mg due to SBP > 140s.Taking diltiazem 120 mg daily for arrhythmiaTaking Lisinopril 10 mg daily for blood pressure.Taking Rosuvastatin 10 mg and Aspirin 81 mg daily for cholesterol/CAD12/2020 lipid panel favorable with ratio 3.310 CT cardiac Score was 29.4 which is low risk category. There was also focal regions of calcification noted in aorta + marked scoliosis.Decreased kidney function s/p nephrectomy for donation, per last OV note patient scheduled to see rock worker in July 2020. US of kidney ordered at last OV due to flank pain however, labs deferred to rock worker. Per patient, she had improvement in labs per cardiology so she did not go see nephrology.07/12/2020 US right kidney: Unremarkable ultrasound of the right kidney. The left kidney is surgically absent.12/2020 GFR 53 and creatinine normal. GFR ranges from 51 to >60.Known hiatal hernia (EGD 11/2018) + reflux, taking omeprazole 20 mg daily.Patient with complaint of some memory loss. She has a difficult time with word recall at times. Her mother had Parkinson's associated dementia and her father had Alzheimer's dementia. She would like to investigate further potential memory issues. [facility] Work Phone: History of Present illness Narrative Note Date & Type Note Facility History of Present illness Narrative The patient is being seen for the subsequent annual wellness visit.Past Medical, Surgical and Family History: reviewed and updated in chart.Medications and Supplements: Review of all medications by a prescribing practitioner or clinical pharmacist (such as prescriptions, OTCs, herbal therapies and supplements) documented in the medical record.No, the patient is not using opioids.Patient Self Assessment of Health Status: good.Tobacco use: Non-UserAlcohol use: Non-UserIllicit drug use: Non-UserCurrent diet: well balanced diet, does consume adequate fluids and does not consume caffeine.Exercise Frequency: regularly.Depression/Suicide Screening: Patient has a current diagnosis of depression .During the past 2 weeks, the patient has not felt down, depressed or hopeless.During the past 2 weeks, the patient has not felt little interest or pleasure in doing things.Hearing Impairment: none.Cognitive Impairment: No cognitive impairment observed.Managing Finances: performs independently.Shopping: performs independently.Managing Medications: performs independently.Housework / Basic Home Maintenance: performs independently.Falls Risk Screening:. CLINT has not fallen in the last 6 months.Home safety risk factors: none.Health maintenance:TDAP-- none foundCOVID-- 08/2021Influenza-- hingrix-- none foundPneumonia series-- completedMammo-- AP-- none found - graduatedEGD-- 11/2018 (hiatal hernia + Schatzki's ring, no pathology done)Cscope(45-75)-- 10/2011 (diverticulosis, normal mucosa, no polyps, good prep) (due 10/2021)Last Dexa (65+)-- 12/2020 (osteopenia 09/27, improved from osteoporosis 10/2018) (DUE 12/2022).Anxiety/Depression-- HQ-9: 0GAD-7: 0Hepatitis C Screen-- none foundPre-DM-- HgbA1c: 6.1 in ipid Panel-- ratio: 3.0 in T cardiac score--29.4 (low) 05/2019 (focal regions of calcification in the aorta)ECHO-- 08/2018 (LVEF 55-60 %, impaired relaxation, mildly elevated RSVP)sees cardiology in Aug appt*Due for: TDAP, SHINGRIX, MAMMO, COLONOSCOPY, HEP C SCREEN, A1cSon will be health care spokesperson, Nemesio GramajoPatient presents today for recheck of chronic conditions + MWV. r efills sentSCALES givenconcerns: had covid last month but is fine nowPatient would like to receive their wellness visit today. Patient was made aware of and signed acknowledging that if they and the provider decide to discuss medical problems today, instead of returning for a separate visit, that is not part of the wellness visit. Also made aware that in the event that discussion beyond the wellness visit components does occur, an office visit charge will be billed and they will be responsible for any copays and deductibles that apply under their insurance plan. CHRONIC CONDITIONS:-Mood, taking Lexapro 10 mg daily for mood.-Osteoporosis, presently on Alendronate which was started DEXA shows osteopenia 09/27, significantly improved from prior DEXA in 10/2018 (osteoporosis).-Hyperglycemia, pre-diabetic range, lifestyle managed.12/2020 Hgb A1c 6.1-Varicose veins and some edema, previously evaluated by Dr. Wang (vascular)They felt the leg pain was likely neurogenic.No venous abnormality seen on duplex done 12/17/2020.Advised to wear compression stockings and elevate..-History of arrhythmia, HFpEF, and HTN also followed by cardiology.Taking diltiazem 120 mg daily for arrhythmiaTaking Lisinopril 20 mg daily for blood pressure.-HLD/CAD, taking Rosuvastatin 10 mg and Aspirin 81 mg daily.05/2019 CACS was 29.4 (focal regions of calcification noted in aorta + marked scoliosis)12/2021 lipid panel favorable with ratio 3.0-Decreased kidney function s/p left nephrectomy for /18/2020 US kidney: Unremarkable ultrasound of the right kidney. The left kidney is surgically absent.12/2020 GFR 53 and creatinine normal. GFR ranges from 51 to >60.12/2021 GFR 69 (normal)-GERD + hiatal hernia (EGD 11/2018), taking omeprazole 20 mg daily. [facility] Work Phone: Instructions Instruction Description Start Date Completed Name Dates Details Instructions not documented Name Dates Details Instructions not documented Name Dates Details Instructions not documented Name Dates Details Instructions not documented Name Dates Details Instructions not documented Name Dates Details Instructions not documented Name Dates Details Instructions not documented Name Dates Details Instructions not documented Name Dates Details Instructions not documented Name Dates Details Instructions not documented Name Dates Details Instructions not documented Name Dates Details Instructions not documented Name Dates Details Instructions not documented Name Dates Details Instructions not documented Name Dates Details Instructions not documented Name Dates Details Instructions not documented Advance Directives There may be information available, but it has not been provided by the sender. No Advanced Directives Records FoundNo Advanced Directives Records FoundNo Advanced Directives Records Found Assessments There may be information available, but it has not been provided by the sender. Review of System There may be information available, but it has not been provided by the sender. Family History No Family History Records Found Grandmother Name Dates Details Family history of malignant neoplasm of colon(V16.0, Z80.0) Status:Active Mother Name Dates Details Family history of deafness o r hearing loss(V19.2, Z82.2) Status:Active Family history of Parkinsons disease, secondary(332.1, G21.9) Status:Active Father Name Dates Details Family history of Alzheimer' s disease(V17.2, Z82.0) Status:Active Brother Name Dates Details Family history of atrial fib rillation(V17.49, Z82.49) Status:Active Grandmother Name Dates Details Family history of malignant neoplasm of colon(V16.0, Z80.0) Status:Active Mother Name Dates Details Family history of Parkinsons disease, secondary(332.1, G21.9) Status:Active Family history of deafness o r hearing loss(V19.2, Z82.2) Status:Active Father Name Dates Details Family history of Alzheimer' s disease(V17.2, Z82.0) Status:Active Brother Name Dates Details Family history of atrial fib rillation(V17.49, Z82.49) Status:Active Grandmother Name Dates Details Family history of malignant neoplasm of colon(V16.0, Z80.0) Status:Active Mother Name Dates Details Family history of deafness o r hearing loss(V19.2, Z82.2) Status:Active Family history of Parkinsons disease, secondary(332.1, G21.9) Status:Active Father Name Dates Details Family history of Alzheimer' s disease(V17.2, Z82.0) Status:Active Brother Name Dates Details Family history of atrial fib rillation(V17.49, Z82.49) Status:Active Grandmother Name Dates Details Family history of malignant neoplasm of colon(V16.0, Z80.0) Status:Active Mother Name Dates Details Family history of Parkinsons disease, secondary(332.1, G21.9) Status:Active Family history of deafness o r hearing loss(V19.2, Z82.2) Status:Active Father Name Dates Details Family history of Alzheimer' s disease(V17.2, Z82.0) Status:Active Brother Name Dates Details Family history of atrial fib rillation(V17.49, Z82.49) Status:Active Grandmother Name Dates Details Family history of malignant neoplasm of colon(V16.0, Z80.0) Status:Active Mother Name Dates Details Family history of deafness o r hearing loss(V19.2, Z82.2) Status:Active Family history of Parkinsons disease, secondary(332.1, G21.9) Status:Active Father Name Dates Details Family history of Alzheimer' s disease(V17.2, Z82.0) Status:Active Brother Name Dates Details Family history of atrial fib rillation(V17.49, Z82.49) Status:Active Grandmother Name Dates Details Family history of malignant neoplasm of colon(V16.0, Z80.0) Status:Active Mother Name Dates Details Family history of deafness o r hearing loss(V19.2, Z82.2) Status:Active Family history of Parkinsons disease, secondary(332.1, G21.9) Status:Active Father Name Dates Details Family history of Alzheimer' s disease(V17.2, Z82.0) Status:Active Brother Name Dates Details Family history of atrial fib rillation(V17.49, Z82.49) Status:Active Grandmother Name Dates Details Family history of malignant neoplasm of colon(V16.0, Z80.0) Status:Active Mother Name Dates Details Family history of deafness o r hearing loss(V19.2, Z82.2) Status:Active Family history of Parkinsons disease, secondary(332.1, G21.9) Status:Active Father Name Dates Details Family history of Alzheimer' s disease(V17.2, Z82.0) Status:Active Brother Name Dates Details Family history of atrial fib rillation(V17.49, Z82.49) Status:Active Grandmother Name Dates Details Family history of malignant neoplasm of colon(V16.0, Z80.0) Status:Active Mother Name Dates Details Family history of deafness o r hearing loss(V19.2, Z82.2) Status:Active Family history of Parkinsons disease, secondary(332.1, G21.9) Status:Active Father Name Dates Details Family history of Alzheimer' s disease(V17.2, Z82.0) Status:Active Brother Name Dates Details Family history of atrial fib rillation(V17.49, Z82.49) Status:Active Grandmother Name Dates Details Family history of malignant neoplasm of colon(V16.0, Z80.0) Status:Active Mother Name Dates Details Family history of deafness o r hearing loss(V19.2, Z82.2) Status:Active Family history of Parkinsons disease, secondary(332.1, G21.9) Status:Active Father Name Dates Details Family history of Alzheimer' s disease(V17.2, Z82.0) Status:Active Brother Name Dates Details Family history of atrial fib rillation(V17.49, Z82.49) Status:Active Grandmother Name Dates Details Family history of malignant neoplasm of colon(V16.0, Z80.0) Status:Active Mother Name Dates Details Family history of Parkinsons disease, secondary(332.1, G21.9) Status:Active Family history of deafness o r hearing loss(V19.2, Z82.2) Status:Active Father Name Dates Details Family history of Alzheimer' s disease(V17.2, Z82.0) Status:Active Brother Name Dates Details Family history of atrial fib rillation(V17.49, Z82.49) Status:Active Grandmother Name Dates Details Family history of malignant neoplasm of colon(V16.0, Z80.0) Status:Active Mother Name Dates Details Family history of Parkinsons disease, secondary(332.1, G21.9) Status:Active Family history of deafness o r hearing loss(V19.2, Z82.2) Status:Active Father Name Dates Details Family history of Alzheimer' s disease(V17.2, Z82.0) Status:Active Brother Name Dates Details Family history of atrial fib rillation(V17.49, Z82.49) Status:Active Grandmother Name Dates Details Family history of malignant neoplasm of colon(V16.0, Z80.0) Status:Active Mother Name Dates Details Family history of Parkinsons disease, secondary(332.1, G21.9) Status:Active Family history of deafness o r hearing loss(V19.2, Z82.2) Status:Active Father Name Dates Details Family history of Alzheimer' s disease(V17.2, Z82.0) Status:Active Brother Name Dates Details Family history of atrial fib rillation(V17.49, Z82.49) Status:Active Grandmother Name Dates Details Family history of malignant neoplasm of colon(V16.0, Z80.0) Status:Active Mother Name Dates Details Family history of deafness o r hearing loss(V19.2, Z82.2) Status:Active Family history of Parkinsons disease, secondary(332.1, G21.9) Status:Active Father Name Dates Details Family history of Alzheimer' s disease(V17.2, Z82.0) Status:Active Brother Name Dates Details Family history of atrial fib rillation(V17.49, Z82.49) Status:Active Grandmother Name Dates Details Family history of malignant neoplasm of colon(V16.0, Z80.0) Status:Active Mother Name Dates Details Family history of deafness o r hearing loss(V19.2, Z82.2) Status:Active Family history of Parkinsons disease, secondary(332.1, G21.9) Status:Active Father Name Dates Details Family history of Alzheimer' s disease(V17.2, Z82.0) Status:Active Brother Name Dates Details Family history of atrial fib rillation(V17.49, Z82.49) Status:Active Grandmother Name Dates Details Family history of malignant neoplasm of colon(V16.0, Z80.0) Status:Active Mother Name Dates Details Family history of deafness o r hearing loss(V19.2, Z82.2) Status:Active Family history of Parkinsons disease, secondary(332.1, G21.9) Status:Active Father Name Dates Details Family history of Alzheimer' s disease(V17.2, Z82.0) Status:Active Brother Name Dates Details Family history of atrial fib rillation(V17.49, Z82.49) Status:Active Grandmother Name Dates Details Family history of malignant neoplasm of colon(V16.0, Z80.0) Status:Active Mother Name Dates Details Family history of deafness o r hearing loss(V19.2, Z82.2) Status:Active Family history of Parkinsons disease, secondary(332.1, G21.9) Status:Active Father Name Dates Details Family history of Alzheimer' s disease(V17.2, Z82.0) Status:Active Brother Name Dates Details Family history of atrial fib rillation(V17.49, Z82.49) Status:Active Unknown Family Member Name Dates Details Family history of deafness o r hearing loss: Mother(V19.2, Z82.2) Status:Active Family history of Alzheimer' s disease: Father(V17.2, Z82.0) Status:Active Parkinsons disease, secondar y: Mother Status:Active Family history of atrial fib rillation: Brother(V17.49, Z82.49) Status:Active Family history of malignant neoplasm of colon: Maternal Grandmother(V16.0, Z80.0) Status:Active Unknown Family Member Name Dates Details Family history of malignant neoplasm of colon: Maternal Grandmother(V16.0, Z80.0) Status:Active Family history of atrial fib rillation: Brother(V17.49, Z82.49) Status:Active Parkinsons disease, secondar y: Mother Status:Active Family history of Alzheimer' s disease: Father(V17.2, Z82.0) Status:Active Family history of deafness o r hearing loss: Mother(V19.2, Z82.2) Status:Active Unknown Family Member Name Dates Details Family history of deafness o r hearing loss: Mother(V19.2, Z82.2) Status:Active Family history of Alzheimer' s disease: Father(V17.2, Z82.0) Status:Active Parkinsons disease, secondar y: Mother Status:Active Family history of atrial fib rillation: Brother(V17.49, Z82.49) Status:Active Family history of malignant neoplasm of colon: Maternal Grandmother(V16.0, Z80.0) Status:Active Unknown Family Member Name Dates Details Family history of deafness o r hearing loss: Mother(V19.2, Z82.2) Status:Active Family history of Alzheimer' s disease: Father(V17.2, Z82.0) Status:Active Parkinsons disease, secondar y: Mother Status:Active Family history of malignant neoplasm of colon: Maternal Grandmother(V16.0, Z80.0) Status:Active Family history of atrial fib rillation: Brother(V17.49, Z82.49) Status:Active Unknown Family Member Name Dates Details Family history of deafness o r hearing loss: Mother(V19.2, Z82.2) Status:Active Family history of Alzheimer' s disease: Father(V17.2, Z82.0) Status:Active Parkinsons disease, secondar y: Mother Status:Active Family history of malignant neoplasm of colon: Maternal Grandmother(V16.0, Z80.0) Status:Active Family history of atrial fib rillation: Brother(V17.49, Z82.49) Status:Active Unknown Family Member Name Dates Details Family history of atrial fib rillation: Brother(V17.49, Z82.49) Status:Active Family history of malignant neoplasm of colon: Maternal Grandmother(V16.0, Z80.0) Status:Active Parkinsons disease, secondar y: Mother Status:Active Family history of Alzheimer' s disease: Father(V17.2, Z82.0) Status:Active Family history of deafness o r hearing loss: Mother(V19.2, Z82.2) Status:Active Unknown Family Member Name Dates Details Family history of Alzheimer' s disease: Father(V17.2, Z82.0) Status:Active Parkinsons disease, secondar y: Mother Status:Active Family history of atrial fib rillation: Brother(V17.49, Z82.49) Status:Active Family history of malignant neoplasm of colon: Maternal Grandmother(V16.0, Z80.0) Status:Active Family history of deafness o r hearing loss: Mother(V19.2, Z82.2) Status:Active Unknown Family Member Name Dates Details Family history of deafness o r hearing loss: Mother(V19.2, Z82.2) Status:Active Family history of Alzheimer' s disease: Father(V17.2, Z82.0) Status:Active Parkinsons disease, secondar y: Mother Status:Active Family history of malignant neoplasm of colon: Maternal Grandmother(V16.0, Z80.0) Status:Active Family history of atrial fib rillation: Brother(V17.49, Z82.49) Status:Active Unknown Family Member Name Dates Details Family history of deafness o r hearing loss: Mother(V19.2, Z82.2) Status:Active Family history of Alzheimer' s disease: Father(V17.2, Z82.0) Status:Active Parkinsons disease, secondar y: Mother Status:Active Family history of malignant neoplasm of colon: Maternal Grandmother(V16.0, Z80.0) Status:Active Family history of atrial fib rillation: Brother(V17.49, Z82.49) Status:Active Unknown Family Member Name Dates Details Family history of deafness o r hearing loss: Mother(V19.2, Z82.2) Status:Active Family history of Alzheimer' s disease: Father(V17.2, Z82.0) Status:Active Parkinsons disease, secondar y: Mother Status:Active Family history of malignant neoplasm of colon: Maternal Grandmother(V16.0, Z80.0) Status:Active Family history of atrial fib rillation: Brother(V17.49, Z82.49) Status:Active Unknown Family Member Name Dates Details Family history of malignant neoplasm of colon: Maternal Grandmother(V16.0, Z80.0) Status:Active Family history of atrial fib rillation: Brother(V17.49, Z82.49) Status:Active Parkinsons disease, secondar y: Mother Status:Active Family history of Alzheimer' s disease: Father(V17.2, Z82.0) Status:Active Family history of deafness o r hearing loss: Mother(V19.2, Z82.2) Status:Active Unknown Family Member Name Dates Details Family history of atrial fib rillation: Brother(V17.49, Z82.49) Status:Active Family history of malignant neoplasm of colon: Maternal Grandmother(V16.0, Z80.0) Status:Active Parkinsons disease, secondar y: Mother Status:Active Family history of Alzheimer' s disease: Father(V17.2, Z82.0) Status:Active Family history of deafness o r hearing loss: Mother(V19.2, Z82.2) Status:Active Unknown Family Member Name Dates Details Family history of deafness o r hearing loss: Mother(V19.2, Z82.2) Status:Active Parkinsons disease, secondar y: Mother Status:Active Family history of Alzheimer' s disease: Father(V17.2, Z82.0) Status:Active Family history of malignant neoplasm of colon: Maternal Grandmother(V16.0, Z80.0) Status:Active Family history of atrial fib rillation: Brother(V17.49, Z82.49) Status:Active Unknown Family Member Name Dates Details Family history of deafness o r hearing loss: Mother(V19.2, Z82.2) Status:Active Parkinsons disease, secondar y: Mother Status:Active Family history of Alzheimer' s disease: Father(V17.2, Z82.0) Status:Active Family history of malignant neoplasm of colon: Maternal Grandmother(V16.0, Z80.0) Status:Active Family history of atrial fib rillation: Brother(V17.49, Z82.49) Status:Active Unknown Family Member Name Dates Details Family history of deafness o r hearing loss: Mother(V19.2, Z82.2) Status:Active Parkinsons disease, secondar y: Mother Status:Active Family history of Alzheimer' s disease: Father(V17.2, Z82.0) Status:Active Family history of malignant neoplasm of colon: Maternal Grandmother(V16.0, Z80.0) Status:Active Family history of atrial fib rillation: Brother(V17.49, Z82.49) Status:Active Unknown Family Member Name Dates Details Family history of malignant neoplasm of colon: Maternal Grandmother(V16.0, Z80.0) Status:Active Family history of atrial fib rillation: Brother(V17.49, Z82.49) Status:Active Parkinsons disease, secondar y: Mother Status:Active Family history of Alzheimer' s disease: Father(V17.2, Z82.0) Status:Active Family history of deafness o r hearing loss: Mother(V19.2, Z82.2) Status:Active Unknown Family Member Name Dates Details Family history of Alzheimer' s disease: Father(V17.2, Z82.0) Status:Active Parkinsons disease, secondar y: Mother Status:Active Family history of atrial fib rillation: Brother(V17.49, Z82.49) Status:Active Family history of malignant neoplasm of colon: Maternal Grandmother(V16.0, Z80.0) Status:Active Family history of deafness o r hearing loss: Mother(V19.2, Z82.2) Status:Active Unknown Family Member Name Dates Details Family history of deafness o r hearing loss: Mother(V19.2, Z82.2) Status:Active Family history of Alzheimer' s disease: Father(V17.2, Z82.0) Status:Active Parkinsons disease, secondar y: Mother Status:Active Family history of malignant neoplasm of colon: Maternal Grandmother(V16.0, Z80.0) Status:Active Family history of diabetes m ellitus: Mother, Sibling(V18.0, Z83.3) Status:Active Unknown Family Member Name Dates Details Family history of deafness o r hearing loss: Mother(V19.2, Z82.2) Status:Active Family history of Alzheimer' s disease: Father(V17.2, Z82.0) Status:Active Parkinsons disease, secondar y: Mother Status:Active Family history of malignant neoplasm of colon: Maternal Grandmother(V16.0, Z80.0) Status:Active Family history of diabetes m ellitus: Mother, Sibling(V18.0, Z83.3) Status:Active Unknown Family Member Name Dates Details Family history of deafness o r hearing loss: Mother(V19.2, Z82.2) Status:Active Parkinsons disease, secondar y: Mother Status:Active Family history of Alzheimer' s disease: Father(V17.2, Z82.0) Status:Active Family history of malignant neoplasm of colon: Maternal Grandmother(V16.0, Z80.0) Status:Active Family history of diabetes m ellitus: Mother, Sibling(V18.0, Z83.3) Status:Active Unknown Family Member Name Dates Details Family history of deafness o r hearing loss: Mother(V19.2, Z82.2) Status:Active Parkinsons disease, secondar y: Mother Status:Active Family history of Alzheimer' s disease: Father(V17.2, Z82.0) Status:Active Family history of malignant neoplasm of colon: Maternal Grandmother(V16.0, Z80.0) Status:Active Family history of diabetes m ellitus: Mother, Sibling(V18.0, Z83.3) Status:Active Unknown Family Member Name Dates Details Family history of deafness o r hearing loss: Mother(V19.2, Z82.2) Status:Active Parkinsons disease, secondar y: Mother Status:Active Family history of Alzheimer' s disease: Father(V17.2, Z82.0) Status:Active Family history of malignant neoplasm of colon: Maternal Grandmother(V16.0, Z80.0) Status:Active Family history of diabetes m ellitus: Mother, Sibling(V18.0, Z83.3) Status:Active Unknown Family Member Name Dates Details Family history of diabetes m ellitus: Mother, Sibling(V18.0, Z83.3) Status:Active Family history of malignant neoplasm of colon: Maternal Grandmother(V16.0, Z80.0) Status:Active Family history of deafness o r hearing loss: Mother(V19.2, Z82.2) Status:Active Parkinsons disease, secondar y: Mother Status:Active Family history of Alzheimer' s disease: Father(V17.2, Z82.0) Status:Active Unknown Family Member Name Dates Details Family history of malignant neoplasm of colon: Maternal Grandmother(V16.0, Z80.0) Status:Active Family history of diabetes m ellitus: Mother, Sibling(V18.0, Z83.3) Status:Active Parkinsons disease, secondar y: Mother Status:Active Family history of Alzheimer' s disease: Father(V17.2, Z82.0) Status:Active Family history of deafness o r hearing loss: Mother(V19.2, Z82.2) Status:Active Unknown Family Member Name Dates Details Family history of deafness o r hearing loss: Mother(V19.2, Z82.2) Status:Active Family history of Alzheimer' s disease: Father(V17.2, Z82.0) Status:Active Parkinsons disease, secondar y: Mother Status:Active Family history of malignant neoplasm of colon: Maternal Grandmother(V16.0, Z80.0) Status:Active Family history of diabetes m ellitus: Mother, Sibling(V18.0, Z83.3) Status:Active Summary Purpose Chief Complaint GERD, and mood + MWVf/u chronic conditions + MWVrib pain. Additional Source Comments INFORMATION SOURCE (unrecogn ized section and content) DATE CREATED AUTHOR AUTHOR'S ORGANIZ ATION 09/05/2022 [facility] DATE CREATED AUTHOR AUTHOR'S ORGANIZ ATION 02/04/2023 [facility] FOR RECORDS PERTAINING TO PATIENTS WHO ARE OR HAVE BEEN ENROLLED IN A CHEMICAL DEPENDENCY/SUBSTANCEABUSE PROGRAM, SOME INFORMATION MAY BE OMITTED. This clinical summary was aggregated from multiple sources. Caution should be exercised in using it in the provision of clinical care. This summary normalizes information from multiple sources, and as a consequence, information in this document may materially change the coding, format and clinical context of patient data. In addition, data may be omitted in some cases. CLINICAL DECISIONS SHOULD BE BASED ON THE PRIMARY CLINICAL RECORDS. [facility] [employer] provides no warranty or guarantee of the accuracy or completeness of information in this document.
== END | disposition home or self-care (01) ==
LOC: OPBD 10:21
PROVIDERS: PCP Family Medicine; Referring Provider Nurse Practitioner Family; Visit Provider Nurse Practitioner Family
DX: M81.0 Age-related osteoporosis without current pathological fracture (principal)
CPT/HCPCS: 77080

== ENCOUNTER → 2023-12-30 | Outpatient (CLI) | payer MEDICARE, SELFPAY ==
[2023-12-30 12:38] LABS: ALB/GLOB Ratio 0.9 RATIO (0.9-2.4); AST(SGOT) 19 U/L (15-37); Alanine Aminotransfer ALT/SGPT 27 U/L (13-56); Albumin, Serum 3.4 g/dL (3.2-5.0); Alkaline Phosphatase 92 U/L (45-117); Anion Gap 7 (5-15); BUN 17 mg/dL (7-18); BUN/Creat Ratio 14.7 RATIO (10-20); Calcium,Total 9.2 mg/dL (8.5-10.1); Chloride 107 mmol/L (98-107); Creatinine, Serum 1.16 mg/dL (0.55-1.02); EST Glomerular Filtration Rate 49 mL/min (>60); Est Glom Filt Rate - Afr Amer 59 mL/min (>60); Globulin 3.7 g/dL (2.2-4.2); Glucose 114 mg/dL (74-106); Potassium 4.1 mmol/L (3.5-5.1); Protein, Total 7.1 g/dL (6.4-8.2); Sodium Level 138 mmol/L (136-145)
[2023-12-30 13:09] LABS: Hemoglobin A1c 5.7 % (3.8-5.6)
== END | disposition home or self-care (01) ==
LOC: BFHLAB 09:05
PROVIDERS: PCP Nurse Practitioner Family; Referring Provider Nurse Practitioner Family; Visit Provider Nurse Practitioner Family
DX: I10 Essential (primary) hypertension (principal); Z90.5 Acquired absence of kidney; R73.01 Impaired fasting glucose
CPT/HCPCS: 36415; 80053; 83036

== ENCOUNTER → 2024-07-12 | Outpatient (CLI) | payer MEDICARE, SELFPAY ==
[2024-07-12 12:48] LABS: Absolute Lymphocyte Count 1.13 X10^3/uL (0.83-4.51); Absolute Neutrophil Count 3.2 X10^3/uL (2.0-7.7); Basophil# 0.05 X10^3/uL; Eosinophils% 2.1 % (0-5); Hematocrit 43.7 % (37-47); Hemoglobin 14.4 g/dL (12.0-15.0); Lymphocyte # 1.13 X10^3/ul (0.83-4.51); Lymphocyte % 23.5 % (19-41); Mean Corpuscular Hgb 29.6 pg (27.0-32.0); Mean Corpuscular Volume 89.7 fL (81-99); Mean Platelet Vol. 9.8 fl (6.2-12.0); Monocyte# 0.33 X10^3/uL; Monocyte% 6.9 % (0-10); NRBC Flagged by Analyzer 0 % (0-5); Neutrophil # 3.19 X10^3/uL (2.7-7.7); Neutrophil % 66.3 % (47-70); Platelet Count 247 K/mm3 (150-450); RBC Distribution Width CV 12.7 % (11.6-14.6); Red Blood Count 4.87 M/mm3 (4.2-5.4); White Blood Count 4.8 K/mm3 (4.4-11.0)
[2024-07-12 12:51] LABS: AST(SGOT) 15 U/L (15-37); Alanine Aminotransfer ALT/SGPT 20 U/L (13-56); Albumin, Serum 3.5 g/dL (3.2-5.0); Alkaline Phosphatase 92 U/L (45-117); Anion Gap 5 (5-15); BUN 17 mg/dL (7-18); BUN/Creat Ratio 16.5 RATIO (10-20); Calcium,Total 9.1 mg/dL (8.5-10.1); Chloride 110 mmol/L (98-107); Cholesterol 155 mg/dL (200); Creatinine, Serum 1.03 mg/dL (0.55-1.02); EST Glomerular Filtration Rate 56 mL/min (>60); Est Glom Filt Rate - Afr Amer 68 mL/min (>60); Globulin 3.5 g/dL (2.2-4.2); Glucose 112 mg/dL (74-106); High Density Lipoprotein 47 mg/dL; Potassium 4.1 mmol/L (3.5-5.1); Sodium Level 140 mmol/L (136-145); Triglycerides 103 mg/dL; Very Low Density Lipoprotein 21 mg/dL (5-40)
[2024-07-12 12:55] LABS: Vitamin D,25 Hydroxy 32.3 ng/mL
== END | disposition home or self-care (01) ==
LOC: BFHLAB 09:07
PROVIDERS: PCP Nurse Practitioner Family; Referring Provider Nurse Practitioner Family; Visit Provider Nurse Practitioner Family
DX: I10 Essential (primary) hypertension (principal); E78.5 Hyperlipidemia, unspecified; E55.9 Vitamin D deficiency, unspecified
CPT/HCPCS: 36415; 80053; 80061; 82306; 85025

== ENCOUNTER → 2024-07-16 | Outpatient (CLI) | payer MEDICARE, SELFPAY ==
--- NOTE | 2024-07-16 15:04 | BI_ITS ---
MAMMOGRAPHY - BILATERAL SCREENING REASON FOR EXAM: Female, 74 years old. Routine annual screening examination. PERTINENT HISTORY: Non-contributory. TECHNIQUE: Digital bilateral breast mendoza (3D mammographic acquisition) in the CC and MLO projections. 2-D mediolateral oblique (MLO) and craniocaudad (CC) views of both breasts were obtained. CAD: Full Field Digital Mammography with Computer Added Detection was performed. COMPARISON: Comparison is made with prior study dated July 15, 2023. FINDINGS: Breast Composition: There are scattered areas of fibroglandular density. There are no dominant masses or suspicious calcifications. No other significant abnormalities are identified. There has been no significant change since the prior study. BI/SCRN MAMM (CAD)W/MENDOZA BILAT IMPRESSION: Stable bilateral screening mammogram. Yearly follow-up mammogram recommended. (A) ASSESSMENT CATEGORY: BIRADS Category 1: Negative. A letter regarding these results will be sent to the patient by the facility within 30 days. Approximately 10% of breast cancers are not detected by mammography. A normal mammogram should not delay biopsy of a clinically suspicious abnormality. [id number] Electronically Signed: Valente Bird MD at 15:45 EST ,
== END | disposition home or self-care (01) ==
LOC: OPBI 15:02
PROVIDERS: PCP Nurse Practitioner Family; Referring Provider Nurse Practitioner Family; Visit Provider Nurse Practitioner Family
DX: Z12.31 Encounter for screening mammogram for malignant neoplasm of breast (principal)
CPT/HCPCS: 77063; 77067

== ENCOUNTER → 2025-01-10 | Outpatient (CLI) | payer MEDICARE, SELFPAY ==
[2025-01-10 10:06] LABS: Absolute Lymphocyte Count 0.98 X10^3/uL (0.83-4.51); Absolute Neutrophil Count 4.9 X10^3/uL (2.0-7.7); Basophil# 0.05 X10^3/uL; Basophil% 0.8 % (0-1); Eosinophil# 0.06 X10^3/uL; Eosinophils% 0.9 % (0-5); Hematocrit 42.6 % (37-47); Hemoglobin 14.4 g/dL (12.0-15.0); Lymphocyte # 0.98 X10^3/ul (0.83-4.51); Lymphocyte % 15.4 % (19-41); Mean Corp Hgb Conc 33.8 g/dL (32-36); Mean Corpuscular Hgb 29.8 pg (27.0-32.0); Mean Platelet Vol. 9.3 fl (6.2-12.0); Monocyte# 0.38 X10^3/uL; NRBC Flagged by Analyzer 0 % (0-5); Neutrophil # 4.85 X10^3/uL (2.7-7.7); Neutrophil % 76.4 % (47-70); Platelet Count 273 K/mm3 (150-450); RBC Distribution Width CV 12.6 % (11.6-14.6); RBC Distribution Width SD 40.8 fl (35.1-43.9); Red Blood Count 4.84 M/mm3 (4.2-5.4); White Blood Count 6.4 K/mm3 (4.4-11.0)
[2025-01-10 11:01] LABS: ALB/GLOB Ratio 1.3 RATIO (0.9-2.4); AST(SGOT) 18 U/L (<=31); Alanine Aminotransfer ALT/SGPT 13 U/L (<=34); Albumin, Serum 4.1 g/dL (3.4-4.8); Alkaline Phosphatase 99 U/L (35-104); Anion Gap 10 (5-15); BUN 18 mg/dL (4-19); BUN/Creat Ratio 19.4 RATIO (10-20); Calcium,Total 9.4 mg/dL (7.6-11.0); Carbon Dioxide 21.4 mmol/L (21.0-32.0); Chloride 106 mmol/L (98-108); Cholesterol 157 mg/dL (<=200); Creatinine, Serum 0.94 mg/dL (0.70-1.20); EST Glomerular Filtration Rate 64 (>60); Globulin 3.2 g/dL (2.2-4.2); Glucose 116 mg/dL (70-99); High Density Lipoprotein 46 mg/dL; Low Density Lipoprotein Calc. 89 mg/dL; Potassium 4.2 mmol/L (3.3-5.1); Protein, Total 7.3 g/dL (5.9-8.4); Sodium Level 137 mmol/L (133-145); Total Bilirubin 0.38 mg/dL (0.00-1.30); Triglycerides 110 mg/dL; Very Low Density Lipoprotein 22 mg/dL (5-40); cholesterol:hdl ratio screen 3.43
[2025-01-10 11:04] LABS: Vitamin D,25 Hydroxy 30.5 ng/mL (30-100)
== END | disposition home or self-care (01) ==
LOC: MTLAB 09:06
PROVIDERS: PCP Nurse Practitioner Family; Referring Provider Nurse Practitioner Family; Visit Provider Nurse Practitioner Family
DX: I10 Essential (primary) hypertension (principal); E78.5 Hyperlipidemia, unspecified; E55.9 Vitamin D deficiency, unspecified
CPT/HCPCS: 36415; 80053; 80061; 82306; 85025

== ENCOUNTER → 2025-02-09 | Outpatient (CLI) | payer MEDICARE, SELFPAY ==
--- NOTE | 2025-02-09 12:36 | VDLE_ITS ---
Reason For Study Reason For Study: BLE Pain RIGHT LEFT CFV is compressible, spontaneous, phasic, competent, CFV is compressible, spontaneous, phasic, competent, and demonstrates normal augmentation. and demonstrates normal augmentation. FV is compressible, spontaneous, phasic, competent FV is compressible, spontaneous, phasic, competent and demonstrates normal augmentation. and demonstrates normal augmentation. POP V is compressible, spontaneous, phasic, competent POP V is compressible, spontaneous, phasic, competent and demonstrates normal augmentation. and demonstrates normal augmentation. T/P Trunk is compressible. T/P Trunk is compressible. PTV is compressible. PTV is compressible. LT PerV is compressible. LT PerV is compressible. SFJ is competent and measures 0.59 cm. SFJ is competent and measures 0.60 cm. GSV proximal thigh measures 0.38 x 0.39 cm. Pt states she has HX of LT GSV ablation from proximal GSV at knee measures 0.55 x 0.52 cm. thigh to distal calf approximately 10 years ago. GSV above knee is competent. ASV proximal calf is INCOMPETENT for greater than 0.5 GSV below knee is INCOMPETENT for greater than 0.5 seconds and measures 0.25 cm. seconds. Prox calf ASV appears to connect to remainder of GSV GSV appears to leave fascia distal knee and reenter at ankle. at distal calf. SSV at junction is competent and measures 0.53 cm. SSV mid calf is competent and measures 0.21 x 0.19 SSV mid calf is competent and measures 0.31 x 0.27 cm. cm. Procedure Exam performed in department. This is a venous duplex using B-mode, color flow and spectral Doppler. The exam was diagnostic. VL/Venous Duplex US - Shaun Extrem Interpretation Summary Deep veins of the bilateral lower extremities are patent and compressible segme ntally. There is no evidence of bilateral lower extremity deep vein thrombosis. The right great saphenous vein appears pa tent and compressible segmentally. Positive for reflux in the right great saphenous vein below the knee. Positive for reflux in the left calf accessory saphenous vein. Ordering Physician: Dahlia Mcmullen Referring Physician: Rasheeda Bermudez Performed By: Ricardo Torres RVT
== END | disposition home or self-care (01) ==
LOC: CVS 12:34
PROVIDERS: PCP Nurse Practitioner Family; Referring Provider Physician Assistant; Visit Provider Physician Assistant
DX: R60.0 Localized edema (principal); M79.606 Pain in leg, unspecified
CPT/HCPCS: 93970

== ENCOUNTER → 2025-07-15 | Outpatient (CLI) | payer MEDICARE, SELFPAY ==
[2025-07-15 12:12] LABS: Hematocrit 41.1 % (37-47); Hemoglobin 13.9 g/dL (12.0-15.0); Immature Granulocytes Count 0.020 X10^3/uL (0.0-0.0); Mean Corp Hgb Conc 33.8 g/dL (32-36); Mean Corpuscular Volume 89.0 fL (81-99); Mean Platelet Vol. 9.8 fl (6.2-12.0); NRBC Flagged by Analyzer 0 % (0-5); Platelet Count 236 K/mm3 (150-450); RBC Distribution Width CV 12.7 % (11.6-14.6); RBC Distribution Width SD 41.5 fl (35.1-43.9); Red Blood Count 4.62 M/mm3 (4.2-5.4); White Blood Count 4.9 K/mm3 (4.4-11.0)
[2025-07-15 12:53] LABS: AST(SGOT) 17 U/L (<=31); Alanine Aminotransfer ALT/SGPT 12 U/L (<=34); Albumin, Serum 3.9 g/dL (3.4-4.8); Alkaline Phosphatase 80 U/L (35-104); Anion Gap 11 (5-15); BUN 17 mg/dL (4-19); BUN/Creat Ratio 18.6 RATIO (10-20); Calcium,Total 9.2 mg/dL (7.6-11.0); Carbon Dioxide 22.6 mmol/L (21.0-32.0); Chloride 105 mmol/L (98-108); Cholesterol 157 mg/dL (<=200); Globulin 2.9 g/dL (2.2-4.2); Glucose 106 mg/dL (70-99); Low Density Lipoprotein Calc. 97 mg/dL; Potassium 4.0 mmol/L (3.3-5.1); Triglycerides 88 mg/dL; Very Low Density Lipoprotein 18 mg/dL (5-40); Vitamin D,25 Hydroxy 25.0 ng/mL (30-100); cholesterol:hdl ratio screen 3.58
== END | disposition home or self-care (01) ==
LOC: BFHLAB 08:54
PROVIDERS: PCP Nurse Practitioner Family; Visit Provider Nurse Practitioner Family
DX: I10 Essential (primary) hypertension (principal); E78.5 Hyperlipidemia, unspecified; E55.9 Vitamin D deficiency, unspecified
CPT/HCPCS: 36415; 80053; 80061; 82306; 85025

== ENCOUNTER → 2025-07-18 | Outpatient (CLI) | payer MEDICARE, SELFPAY ==
--- NOTE | 2025-07-18 07:57 | BI_ITS ---
EXAM: SCRN MAMM (CAD)W/MENDOZA BILAT DATE: 07/18/2025 CLINICAL HISTORY: F, Age 75 y/o , SCREENING TECHNIQUE: Procedure Code: [id number] Modality: MG Procedure: SCRN MAMM (CAD)W/MENDOZA BILAT COMPARISON: Prior exam(s) were compared FINDINGS: TISSUE DENSITY: The breasts are heterogeneously dense, which may obscure small masses. Bilateral Breast Mammographic Findings: No significant masses, calcifications or other abnormalities are identified. BI/SCRN MAMM (CAD)W/MENDOZA BILAT IMPRESSION: No mammographic evidence of malignancy in either breast. OVERALL FINAL ASSESSMENT BI-RADS 1: NEGATIVE. RECOMMENDATION: Routine annual follow-up in 1 Year Additional Recommendation none A letter with findings and recommendations will be mailed to the patient. Reading Location: [id number]
== END | disposition home or self-care (01) ==
PROVIDERS: PCP Nurse Practitioner Family; Referring Provider Nurse Practitioner Family; Visit Provider Nurse Practitioner Family
DX: Z12.31 Encounter for screening mammogram for malignant neoplasm of breast (principal)
CPT/HCPCS: 77063; 77067